=== PATIENT | male | born 1955 | race African-American/Black ===

== ENCOUNTER 2017-01-28 02:59 | Emergency (ER) | payer OTHER ==
--- NOTE | ~2017-01-28 | EKG ---
PATIENT: DE DELONG UNIT #: [id number] Ventricular Rate: 67 BPM Atrial Rate: 67 BPM P-R Interval: 172 ms QRS Duration: 86 ms Q-T Interval: 380 ms QTC Calculation(Bezet): 401 ms P [place]: 47 degrees Calculated R [place]: 23 degrees Calculated T [place]: 24 degrees Diagnosis Line: Sinus rhythm with occasional Premature ventricular Diagnosis Line: complexes Diagnosis Line: Possible Left atrial enlargement Diagnosis Line: Left ventricular hypertrophy Diagnosis Line: Abnormal ECG Diagnosis Line: Diagnosis Line: Confirmed by DAKSHA FRITZ MD ([id number]) on Diagnosis Line: 01/29/2017 4:32:22 PM INTERPRETING MD: LAM MEDINA
--- NOTE | ~2017-01-28 | CR72 ---
[facility] A Service of [facility] & [facility] RADIOLOGY TEXT RESULTS PATIENT: DE DELONG LOCATION: [facility] : 53 UNIT #: [id number] AGE: [address]: Eloy Crawford MD SEX: M ORDER DR: [id number] [facility] [address] [place], [place] [address] [id number] E MR#: [id number] Acc #: [id number] NAME: DE DELONG. : 1955 SEX: M STUDY DATE/TIME: 01/28/2017 2:57 UNIT: [facility] ROOM: STUDY DESCRIPTION: CR Chest Single View Portable Attending Physician: Eloy Crawford M.D. Ordering Physician: Eloy Crawford M.D. Primary Care Physician: Jeremiah Dawson M.D. MEDICAL IMAGING REPORT This report is preliminary unless electronic signature is present EXAM AP portable chest 01/28/2017 02:57 HISTORY Chest pain at 2200 today. Previous myocardial infarction. Hepatitis C. Diabetes. COMPARISON AP portable chest 10/01/2016. FINDINGS Clear lungs. Normal heart size. No pleural effusion, pneumothorax, acute osseous abnormality. IMPRESSION No acute cardiopulmonary findings. Dictated by... Jud Cordon M.D. THIS IS AN ELECTRONICALLY VERIFIED REPORT Jud Cordon M.D. at 01/29/2017 10:01 PM KATHY/polo TD: 01/28/2017 07:57 JOB #: [id number] MEDICAL IMAGING REPORT Page 1 of 1 COPY
--- NOTE | ~2017-01-28 | CT16 ---
[facility] A Service of [facility] RADIOLOGY TEXT RESULTS PATIENT: DE DELONG LOCATION: [facility] : 53 UNIT #: [id number] AGE: [address]: Eloy Crawford MD SEX: M ORDER DR: [id number] [place] [id number] [facility]. [place], [place] [address] [id number] E MR#: [id number] Acc #: [id number] NAME: DE DELONG. : 1955 SEX: M STUDY DATE/TIME: 01/28/2017 4:41 UNIT: [facility] ROOM: STUDY DESCRIPTION: CT Angio Chest for PE Attending Physician: Eloy Crawford M.D. Ordering Physician: Eloy Crawford M.D. Primary Care Physician: Jeremiah Dawson M.D. MEDICAL IMAGING REPORT This report is preliminary unless electronic signature is present EXAM CT angio of the chest with contrast pulmonary embolus protocol. DATE: 01/28/2017 HISTORY Chest pain since 22:00. Elevated D-dimer level. Previous myocardial infarction. Diabetes. Hepatitis C. Smoking history. COMPARISON AP portable chest 01/28/2017 02:57. No prior CT chest for comparison at this institution. PROCEDURE 2-mm axial images through the chest after IV contrast administration. 3-D coronal MIP reformatted images were obtained. The CT exam was performed with one or more of the following radiation dose reduction techniques: automatic exposure control, adjustment of mA and/or kV according to patient size, and iterative reconstruction. FINDINGS No pulmonary embolism. No thoracic aortic aneurysm or aortic dissection. No acute airspace disease. Mild centrilobular emphysematous changes predominately in the upper lobes. No pericardial effusion. No pleural effusion. No pneumothorax. Shotty mediastinal lymph nodes, but no pathologic adenopathy is seen. Cholecystectomy changes. Included upper abdominal organs have an unremarkable appearance. No acute or suspicious osseous abnormalities. IMPRESSION 1. No acute chest findings. No pulmonary embolism. Mild emphysema. [facility] A Service of [facility] RADIOLOGY TEXT RESULTS PATIENT: DE DELONG LOCATION: [facility] : 53 UNIT #: [id number] AGE: [address]: Eloy Crawford MD SEX: M ORDER DR: Dictated by... Jud Cordon M.D. THIS IS AN ELECTRONICALLY VERIFIED REPORT Jud Cordon M.D. at 01/29/2017 9:59 PM [facility]/isaac TD: 01/28/2017 08:26 JOB #: [id number] MEDICAL IMAGING REPORT Page 1 of 1 COPY
[~2017-01-28 02:59] MED LIST: ALDACTONE25 MG PO; BP MED; BRILINTA90 MG PO; CARVEDILOL3.125 MG PO; CIPRO250 MG PO; DEPRESSION MED; FERRO-TIME325 MG PO; FLEXERIL PO; FLEXERIL10 MG PO; FLOMAX0.4 M1 DOB; GLUCOPHAGE500 M1 PO; HCTZ PO; HYDROCODON-ACE1 EAC5 PO; ISOSORBIDE MONO30 M1 PO; JANUVIA50 MG PO; KETOPROFEN PO; LISINOPRIL10 MG PO; LO-DOSE ASPIRIN81 M1 PO; METFORMIN HCL500 M1 PO; NEURONTIN100 MG PO; NITROGLYGERIN0.4 MG SL; NORCO 10-325 TA1 TAB PO; OMEPRAZOLE40 M1 PO; PAIN MED; PRAVASTATIN SOD20 MG PO; PYRIDIUM100 MG PO; TOPROL XL PO; VICODIN 5/1 TAB 5/50 PO
[2017-01-28 03:26] LABS: BASOPHIL# 0.1 X10e3 (0-0.3); BASOPHIL% 1.1 % (0-2.5); EOSINOPHIL# 0.4 X10e3 (0-0.7); EOSINOPHIL% 4.8 % (0.0-7.0); HEMATOCRIT 29.2 % (38.0-50.0); HEMOGLOBIN 10.4 gm/dL (13.0-16.0); LYMPHOCYTE# 3.1 X10e3 (1.0-3.5); MEAN CELL VOLUME 88.2 FL (83-96); MEAN CORPUSCULAR HEMOGLOBIN 31.3 PG (28-34); MEAN CORPUSCULAR HGB CONC 35.5 g/dL (30-36); MEAN PLATELET VOLUME 8.2 FL (6.5-11.5); MONOCYTE# 0.7 X10e3 (0-1.0); MONOCYTE% 8.3 % (3.0-12.0); NEUTROPHIL# 4.1 X10e3 (1.5-7.1); NEUTROPHIL% 48.8 % (40-75); PLATELET COUNT 180 X10e3 (140-420); RED BLOOD COUNT 3.31 X10e (3.90-5.60); WHITE BLOOD COUNT 8.3 X10e3 (4.0-10.5)
[2017-01-28 03:30] LABS: DIFF IND NO
[2017-01-28 03:35] LABS: POC - CKMB <1.0 ng/mL (0.0-7.9); POC - TROPONIN <0.05 ng/mL (<=0.05)
[2017-01-28 03:40] LABS: PARTIAL THROMBOPLASTIN TIME 25.9 SECONDS (23.5-31.3); PROTHROMBIN TIME (PATIENT) 10.7 SECONDS (9.6-11.5)
[2017-01-28 03:56] LABS: ALBUMIN SERUM 3.8 g/dL (3.5-5.0); BILIRUBIN, DIRECT 0.1 mg/dL (0.0-0.2); BILIRUBIN,INDIRECT 0.3 mg/dL (0.0-0.9); BILIRUBIN,TOTAL 0.4 mg/dL (0.2-2.0); CALCIUM SERUM 9.3 mg/dL (8.4-10.2); GLOM FILT RATE Estimated 93.1 mL/min (>60); PROTEIN TOTAL SERUM 7.4 g/dL (6.0-8.3)
== END 2017-01-28 06:59 | disposition home or self-care (01) ==
LOC: CED 02:59
PROVIDERS: Emergency Medicine
DX: R07.89 Other chest pain (principal); I49.3 Ventricular premature depolarization; D64.9 Anemia, unspecified; I25.10 Atherosclerotic heart disease of native coronary artery without angina pectoris; E11.9 Type 2 diabetes mellitus without complications; E78.5 Hyperlipidemia, unspecified; I10 Essential (primary) hypertension; F17.200 Nicotine dependence, unspecified, uncomplicated; Z86.19 Personal history of other infectious and parasitic diseases
CPT/HCPCS: 36415; 71010; 71275; 80048; 80076; 82553; 84484; 85025; 85379; 85610; 85730; 93005; 99284; Q9967